=== PATIENT | female | born 1985 | race Caucasian/White ===

== ENCOUNTER → 2020-04-06 14:15 | Outpatient (BNVA) | payer SELFPAY | DX: Z13.89 Encounter for screening for other disorder (principal) | CPT/HCPCS: U0003 ==

== ENCOUNTER 2023-03-10 09:09 | Outpatient (REF) | payer OTHER, SELFPAY ==
--- NOTE | ~2023-03-10 | MM_ITS ---
EXAMINATION: BONE DENSITOMETRY CLINICAL INDICATION: Multiple sclerosis. COMPARISON: This is the patient's baseline examination. TECHNIQUE: Using a VIOSO DXA System (software version: 13.1) manufactured by [employer], dual-energy x-ray absorptiometry was performed of the lumbar spine and left hip. The images are of good technical quality. Based on ISCD (International Society for Clinical Densitometry) standards of reporting, Z-scores instead of T-scores are reported in this premenopausal woman. Summary results are attached. FINDINGS: LEFT FEMUR, NECK: BMD 0.995 g/cm2, T-score -0.3, Z-score -0.5, Z-score within expected range for age. LEFT FEMUR, TOTAL: BMD 1.051 g/cm2, T-score 0.3, Z-score -0.1, Z-score within expected range for age. AP SPINE L1-L3 (excluding L4): The data of L1-L4 has been changed to exclude the L4 vertebral body, because degenerative sclerosis at this level may cause overestimation of lumbar spine density. BMD 1.140 g/cm2, T-score -0.3, Z-score -1.1, Z-score within expected range for age. IDENTIFIED RISK FACTORS: Height loss. HISTORY OF FRACTURE: None listed. MEDICATIONS: Vitamin D. MM/XR DEXA axial skeleton IMPRESSION: 1. DIAGNOSIS: Based on the lowest Z-score value of -1.1 in the lumbar spine, the patient's bone density is within the expected range for age. 2. 10-YEAR FRACTURE RISK PREDICTION, FRAX: Not performed in this patient outside the age range of 40-90 years. 3. Treatment Recommendations: NOF guidelines recommend consideration for treatment in postmenopausal women and men age 50 and older presenting with the following: -A hip or vertebral (clinical or morphometric) fracture. -T-score less than or equal to -2.5 at the femoral neck or spine after appropriate evaluation to exclude secondary causes. -Low bone mass at the hip or spine and a 10-year fracture probability by FRAX of greater than or equal to 3% for hip fracture or greater than or equal to 20% for major osteoporotic fracture based on the [place] adapted WHO algorithm. 4. Other Recommendations: All treatment decisions require clinical judgment and consideration of individual patient factors, including patient preferences, comorbidities, previous drug use, risk factors not captured in the FRAX model (e.g. frailty, falls, vitamin D deficiency, increased bone turnover, interval significant decline in bone density) and possible under or overestimation of fracture risk by FRAX. FUTURE SCAN RECOMMENDATION: People with diagnosed cases of osteoporosis or at high risk for fracture should have regular bone mineral density tests. For patients eligible for Medicare, routine testing is allowed once every 2 years. The testing frequency can be increased to one year for patients who have rapidly progressing disease, those who are receiving or discontinuing medical therapy to restore bone mass, or have additional risk factors.
== END 2023-03-10 09:10 | disposition home or self-care (01) ==
LOC: HO.MAMMO 09:09
PROVIDERS: PCP Internal Medicine; Visit Provider Physician Assistant
DX: Z13.820 Encounter for screening for osteoporosis (principal); G35 Multiple sclerosis; R29.890 Loss of height; Z79.899 Other long term (current) drug therapy; Q85.02 Neurofibromatosis, type 2
CPT/HCPCS: 77080

== ENCOUNTER 2025-03-03 14:15 | Outpatient (REF) | payer MEDICAID, SELFPAY ==
--- OUTSIDE RECORDS SUMMARY | 2008-08-03 | XMS_ITS | Encounter Summary ---
Author Organization [facility] General [facility] Address [address] [place] [address] Phone Care Team Providers Care Road Boss Name Role Phone Unavailable Primary Care Provider Unavailabl e Encounter Details Date Type Department Care Team (Late st Contact Info) Description 08/03/2008 Hospital Encounter [facility] General Imaging [address] [place] [address] Adolph Roth MD, PhD [address] [facility] [id number] [place] [address] [email or web address] Social History Tobacco Use Types Packs/Day Years Used Date Smoking Tobacco: Never Smokeless Tobacco: Never Alcohol Use Standard Drinks/Week Comments Yes 0 (1 standard drink = 0.6 oz pur e alcohol) once every month Home Health Assessment: Transportation Answer Date Recorded Lack of Transportation (Medical) No 12/21/2024 Lack of Transportation (Non-Medical) No 12/21/2024 Patient Unable or Declines to Respond No 12/21/2024 Education Answer Date Recorded Are you interested in more education? Not on clemente e 09/11/2022 Are you concerned about learning? Not on file 09/11/2022 No 09/11/2022 No 09/11/2022 Digital Access Answer Date Recorded No 10/10/2022 No 10/10/2022 Reliable internet access at home? Not on file 10/10/2022 Device with a working camera? Not on file Intimate Partner Violence Answer Date R ecorded Are you denied basic needs s uch as food, clothing, or medical care? No 10/11/2024 In the past 12 months have y ou been in a relationship with a person who hurts, threatens, or tries to control you? No 10/11/2024 Are you denied basic needs s uch as food, clothing, or medical care? No 10/11/2024 In the past 12 months have y ou been in a relationship with a person who hurts, threatens, or tries to control you? No 10/11/2024 Comments No Sex and Gender Information Value Date Recorded Sex Assigned at Female 07/03/2022 1:09 PM EST Legal Sex Female 9:16 PM EDT Gender Identity Female 07/03/2022 1:09 PM EST Sexual Orientation Straight 07/15/2024 10 :33 AM EST documented as of this encounter Functional Status * Calculated C-SSRS Risk Score (Lifetime/Recent) Answer Date of Assessment Author No Risk Indicated 10/11/2024 1:02 PM EDT Matthew Doan RN * [place] Suicide Severity Rating Scale (Screener/Recent Self-Report) Question Answer Date of Assessment Author 1. Wish to be (Past 1 Month) No 025 1:02 PM EDT Matthew Doan RN 2. Non-Specific Active Suici katlyn Thoughts (Past 1 Month) No 10/11/2024 1:02 PM EDT Matthew Doan RN 6. Suicidal Behavior (Lifetime) No 5 1:02 PM EDT Matthew Doan RN documented as of this encounter Plan of Treatment Not on file documented as of this encounter Procedures Procedure Name Priority Date/Time Associated Diagnosis Comments CT SPINE (NEURO) OUTSIDE (NO INTERPRETATION) Routine 08/03/2008 12:00 AM EDT documented in this encounter Results * CT Spine (Neuro) Focus Outside (No Interpretation) (08/03/2008 12:00 AM EDT) Narrative [facility] IMG INTERFACES - 07/15/2022 1:47 PM EST This study is for PACS storage only and not for interpretation. Adolph Roth MD, PhD IMG OUTSIDE IMAGIN G W/OUT INTERPRETATION Final Result [facility] IMG INTERFACES documented in this encounter Visit Diagnoses Not on filedocumented in this encounter Additional Health Concerns Infection Onset Date Last Indicated Resolved Time COVID-19 02/11/2023 02/11/2023 03/04/2023 1:23 AM EDT documented as of this encounter Additional Source Comments The information contained in this document represents components of the legal health record. It is not the complete legal health record.[facility]
--- OUTSIDE RECORDS SUMMARY | 2008-08-03 | XMS_ITS | Encounter Summary ---
Author Organization [facility] Address [address] [place] [address] Phone Care Team Providers Care Plastics Technician Name Role Phone Unavailable Primary Care Provider Unavailabl e Encounter Details Date Type Department Care Team (Late st Contact Info) Description 08/03/2008 Hospital Encounter [facility]Outside Imaging [address] [place] [address] Unknown, Unknown, MD Social History Tobacco Use Types Packs/Day Years [...] 1:02 PM EDT Matthew Doan RN * [place] Suicide Severity Rating Scale (Screener/Recent Self-Report) Question Answer Date of Assessment Author 1. Wish to be (Past 1 Month) No 025 1:02 PM EDT Matthew Doan RN 2. Non-Specific Active Suici katlyn Thoughts (Past 1 Month) No 10/11/2024 1:02 PM EDT Matthew Doan RN 6. Suicidal Behavior (Lifetime) No 1:02 PM EDT Matthew Doan RN documented as of this encounter Plan of Treatment Not on file documented as of this encounter Procedures Procedure Name Priority Date/Time Associated Diagnosis Comments MRI SPINE MUSCULOSKELETAL FOCUS OUTSIDE (NO INTERPRETATION) Routine 08/03/2008 12:00 AM EDT documented in this encounter Results * MRI Spine (Bone) Outside (No Interpretation) (08/03/2008 12:00 AM EDT) Narrative [facility], DOCUMENTATION - 11/18/2023 12:21 PM EDT This study is for PACS storage only and not for interpretation. us Unknown Unknown MD LUZ OUTSIDE IMAGING W/OUT INT ERPRETATION Final Result documented in this encounter Visit Diagnoses Not on filedocumented in this encounter Additional Health Concerns Infection Onset Date Last Indicated Resolved Time COVID-19 02/11/2023 02/11/2023 03/04/2023 1:23 AM EDT documented as of this encounter Additional Source Comments The information contained in this document represents components of the legal health record. It is not the complete legal health record.[facility]
--- OUTSIDE RECORDS SUMMARY | 2009-10-09 | XMS_ITS | Encounter Summary ---
Author Organization [facility] General [facility] Address [address] [place] [address] Phone Care Team Providers Care Soybean Grower Name Role Phone Unavailable Primary Care Provider Unavailabl e Encounter Details Date Type Department Care Team (Late st Contact Info) Description 10/09/2009 Hospital Encounter [facility] General Imaging [address] [place] [address] Adolph Roth MD, PhD 55 [facility] [id number] [place] [address] [email or web address] Social History Tobacco Use Types Packs/Day [...] 1:02 PM EDT Matthew Doan RN * [place] Suicide Severity Rating Scale (Screener/Recent Self-Report) Question [...] Priority Date/Time Associated Diagnosis Comments MRI SPINE NEUROLOGIC FOCUS OUTSIDE (NO INTERPRETATION) Routine 10/09/2009 12:00 AM EDT documented in this encounter Results * MRI Spine (Neuro) Outside (No Interpretation) (10/09/2009 12:00 AM EDT) Narrative [facility] INTERFACES - 07/15/2022 1:46 PM EST This study is for PACS storage only and not for interpretation. Adolph Roth MD, PhD IM OUTSIDE IMAGIN G W/OUT INTERPRETATION Final Result [...] It is not the complete legal health record.[facility]
--- NOTE | ~2025-03-03 | XR_ITS ---
EXAMINATION: XR CHEST 2 VIEWS HISTORY: acute bacterial bronchitis COMPARISON: There are no prior studies available for comparison. FINDINGS: PA and lateral views of the chest are submitted. A rounded soft tissue mass is seen at the left lung apex compatible with the patient's known neurofibromatosis. The lungs are clear. There is no pleural effusion, pneumothorax, or pulmonary vascular congestion. The heart is normal in size. A surgical clip is seen in the mediastinum. The bones are intact. XR/XR chest 2V IMPRESSION: Clear lungs. Rounded mass at the left lung apex consistent with the patient's known neurofibromatosis. Electronically signed by: Lisandro Norman MD 03/03/2025 02:54 PM EDT
--- OUTSIDE RECORDS SUMMARY | 2025-03-03 16:49 | XMS_ITS | Encounter Summary ---
Author Organization [facility] Address [address] [place] [address] Phone Care Team Providers Care Red Mud Thickener Operator Name Role Phone Sergio Vegas MD Unavailable [phone] Tucker Peters DO Primary Care Provider [phone] Zac Armenta MD Unavailable [phone] Tucker Peters DO Unavailable Tucker Peters DO Primary Care Provider [phone] Encounter Details Date Type Department Care Team (Late st Contact Info) Description 02/19/2023 Procedure Pass [facility] IMG 3DCTMR MG [address] [place] [address] Social History Tobacco Use Types Packs/Day Years Used Date Smoking Tobacco: Never Smokeless Tobacco: Never Alcohol Use Standard Drinks/Week Comments Yes 0 (1 standard drink = 0.6 oz pur e alcohol) once every month Education Answer Date Recorded Are you interested in more education? Not on clemente e 09/11/2022 Are you concerned about learning? Not on file 09/11/2022 No 09/11/2022 No 09/11/2022 Digital Access Answer Date Recorded No 10/10/2022 No 10/10/2022 Reliable internet access at home? Not on file 10/10/2022 Device with a working camera? Not on file Comments No Sex and Gender Information Value Date Recorded Sex Assigned at Female 07/03/2022 1:09 PM EST Legal Sex Female 9:16 PM EDT Gender Identity Female 07/03/2022 1:09 PM EST Sexual Orientation Straight 07/15/2024 10 :33 AM EST documented as of this encounter Plan of Treatment Not on file documented as of this encounter Visit Diagnoses Not on filedocumented in this encounter Additional Health Concerns Infection Onset Date Last Indicated Resolved Time COVID-19 02/11/2023 02/11/2023 03/04/2023 1:23 AM EDT documented as of this encounter Care Teams Red Mud Thickener Operator Relationship Specialty Start Date End Date Tucker Peters DO [address] [place] [address] [email or web address] PCP - General Internal Medicine 07/09/21 07/14/24 Tucker Peters DO [address] [place] [address] PCP - General Internal Medicine 07/15/24 Sergio Vegas MD [address] [place] [address] [email or web address] Primary Oncologist Neurology 07/27/18 Zac Armenta MD [address] [place] [address] Neurosurgery 08/19/22 Tucker Peters DO [address] [place] [address] [email or web address] Insurance Assigned Provider 09/20/22 04/25/23 documented as of this encounter Additional Source Comments The information contained in this document represents components of the legal health record. It is not the complete legal health record.[facility]
--- OUTSIDE RECORDS SUMMARY | 2025-03-03 16:49 | XMS_ITS | Encounter Summary ---
Author Organization [facility] Address [address] [place] [address] Phone Care Team Providers Care Fuels Sales Representative Name Role Phone Sergio Vegas MD Unavailable [phone] Tucker Peters DO Primary Care Provider [phone] Zac Armenta MD Unavailable [phone] Tucker Peters DO Primary Care Provider [phone] Encounter Details Date Type Department Care Team (Late st Contact Info) Description 09/10/2023 Procedure Pass Non-Invasive Cardiology [address] [place] [address] Social History Tobacco Use Types Packs/Day Years [...] Diagnoses Not on filedocumented in this encounter Care Teams Fuels Sales Representative Relationship Specialty Start Date End Date Tucker Peters DO [address] [place] [address] [email or web address] PCP - General Internal Medicine 07/09/21 07/14/24 Tucker Peters DO [address] [place] [address] PCP - General Internal Medicine 07/15/24 Sergio Vegas MD [address] [place] [address] [email or web address] Primary Oncologist Neurology 07/27/18 Zac Armenta MD [address] [place] [address] Neurosurgery 08/19/22 documented as of this encounter Additional Source Comments The information contained in this document represents components of the legal health record. It is not the complete legal health record.[facility]
--- OUTSIDE RECORDS SUMMARY | 2025-03-03 16:49 | XMS_ITS | Encounter Summary ---
Author Organization [facility] Address [address] [place] [address] Phone Care Team Providers Care Bindery Leadperson Name Role Phone Sergio Vegas MD Unavailable [phone] Zac Armenta MD Unavailable [phone] Tucker Peters DO Primary Care Provider Encounter Details Date Type Department Care Team (Late st Contact Info) Description 10/11/2024 Procedure Pass [facility], Ct Scan - [address] [address] Social History Tobacco Use Types Packs/Day Years [...] 1:02 PM EDT Matthew Doan RN * [place] Suicide Severity Rating Scale (Screener/Recent Self-Report) Question [...] on filedocumented in this encounter Care Teams Bindery Leadperson Relationship Specialty Start Date End Date Tucker Peters DO [address] [place] [address] PCP - General Internal Medicine 07/15/24 Sergio Vegas MD [address] [place] [address] [email or web address] Primary Oncologist Neurology 07/27/18 Zac Armenta MD [address] [place] [address] Neurosurgery 08/19/22 documented as of this encounter Additional Source Comments The information contained in this document represents components of the legal health record. It is not the complete legal health record.[facility]
--- OUTSIDE RECORDS SUMMARY | 2025-03-03 16:49 | XMS_ITS | Encounter Summary ---
Author Organization [facility] Address [address] [place] [address] Phone Care Team Providers Care Photo Graphics Librarian Name Role Phone Lorraine Tucker Silva DO Unavailable Galina Reyes SLUBBER HAND Unavailable Bernarda Byrne SLUBBER HAND Unavailable [phone] Flor Iqbal SLUBBER HAND Unavailable Madai Fernandez SLUBBER HAND Unavailable Sangeetha Lincoln SLUBBER HAND Unavailable Carina Bronson MD Primary Care Provider Sergio Vegas MD Unavailable [phone] Tucker Petres DO Primary Care Provider [phone] Tucker Peters DO Unavailable Zac Armenta MD Unavailable [phone] Tucker Peters DO Unavailable Tucker Peters DO Primary Care Provider [phone] Encounter Details Date Type Department Care Team (Late st Contact Info) Description 06/16/2018 Procedure Pass [facility] General Imaging [address] [place] [address] Social History Tobacco Use Types Packs/Day Years Used Date Smoking Tobacco: Never Assessed Comments Unknown Sex and Gender Information Value Date Recorded [...] documented as of this encounter Care Teams Photo Graphics Librarian Relationship Specialty Start Date End Date Carina Bronson MD [address] [place] [address] PCP - General Internal Medicine 06/10/18 07/08/21 Tucker Peters DO [address] [place] [address] PCP - General Internal Medicine 07/09/21 07/14/24 Tucker Peters DO [address] [place] [address] PCP - General Internal Medicine 07/15/24 Tucker Peters DO [address] [place] [address] Historical LMR Provider 03/02/17 05/25/21 Galina Reyes NP [address] [address] Historical LMR Provider 03/02/17 2 Bernarda Byrne NP [address] [place] [address] Historical LMR Provider 03/02/17 2 Flor Iqbal NP [address] [place] [address] Historical LMR Provider 03/02/17 2 Madai Fernandez NP [address] [place] [address] [email or web address] Historical LMR Provider 03/02/17 2 Sangeetha Lincoln NP [address] [place] [address] Historical LMR Provider 03/02/17 2 Sergio Vegas MD [address] [place] [address] [email or web address] Primary Oncologist Neurology 07/27/18 Tucker Peters DO [address] [place] [address] [email or web address] Insurance Assigned Provider 10/26/21 01/25/22 Zac Armenta MD [address] [place] [address] Neurosurgery 08/19/22 Tucker Peters DO [address] [place] [address] [email or web address] Insurance Assigned Provider 09/20/22 04/25/23 documented as of this encounter Additional Source Comments The information contained in this document represents components of the legal health record. It is not the complete legal health record.[facility]
--- OUTSIDE RECORDS SUMMARY | 2025-03-03 16:49 | XMS_ITS | Encounter Summary ---
Author Organization [facility] Address [address] [place] [address] Phone Care Team Providers Care Cull Grader Name Role Phone Sergio Vegas MD Unavailable [phone] Tucker Peters DO Primary Care Provider [phone] Zac Armenta MD Unavailable [phone] Tucker Peters DO Unavailable Tucker Peters DO Primary Care Provider [phone] Encounter Details Date Type Department Care Team (Late st Contact Info) Description 02/19/2023 Procedure Pass [address] [address] Social History Tobacco Use Types Packs/Day Years [...] documented as of this encounter Care Teams Cull Grader Relationship Specialty Start Date End Date Tucker Peters DO [address] [place] [address] [email or web address] PCP - General Internal Medicine 07/09/21 07/14/24 Tucker Peters DO [address] [place] [address] PCP - General Internal Medicine 07/15/24 Sergio Vegas MD [address] [place] [address] [email or web address] Primary Oncologist Neurology 07/27/18 Zac Armenta MD [address] [place] [address] Neurosurgery 08/19/22 Tucker Peters DO [address] [place] [address] [email or web address] Insurance Assigned Provider 09/20/22 04/25/23 documented as of this encounter Additional Source Comments The information contained in this document represents components of the legal health record. It is not the complete legal health record.[facility]
--- OUTSIDE RECORDS SUMMARY | 2025-03-03 16:49 | XMS_ITS | Encounter Summary ---
Author Organization [facility] Address [address] [place] [address] Phone Care Team Providers Care Shop Cooper Name Role Phone Lorraine Tucker Silva DO Unavailable Galina Reyes PHARMACIST PER DIEM Unavailable Bernarda Byrne PHARMACIST PER DIEM Unavailable [phone] Flor Iqbal PHARMACIST PER DIEM Unavailable Madai Fernandez PHARMACIST PER DIEM Unavailable Sangeetha Lincoln PHARMACIST PER DIEM Unavailable Carina Bronson MD Primary Care Provider Sergio Vegas MD Unavailable [phone] Tucker Peters DO Primary Care Provider [phone] Tucker Peters DO Unavailable Zac Armenta MD Unavailable [phone] Tucker Peters DO Unavailable Tucker Peters DO Primary Care Provider [phone] Encounter Details Date Type Department Care Team (Late st Contact Info) Description 06/16/2018 Procedure Pass [facility] General Imaging [address] [place] [address] Social History Tobacco Use Types [...] documented as of this encounter Care Teams Shop Cooper Relationship Specialty Start Date End Date Carina Bronson MD [address] [place] [address] PCP - General Internal Medicine 06/10/18 07/08/21 Tucker Peters DO [address] [place] [address] PCP - General Internal Medicine 07/09/21 07/14/24 Tucker Peters DO [address] [place] [address] PCP - General Internal Medicine 07/15/24 Tucker Peters DO [address] [place] [address] Historical LMR Provider 03/02/17 05/25/21 Galina Reyes NP [address] [address] Historical LMR Provider 03/02/17 2 Bernarda Byrne NP [address] [place] [address] Historical LMR Provider 03/02/17 2 Flor Iqbal NP [address] [place] [address] Historical LMR Provider 03/02/17 2 Madai Fernandez NP [address] [place] [address] [email or web address] Historical LMR Provider 03/02/17 2 Sangeetha Lincoln NP [address] [place] [address] Historical LMR Provider 03/02/17 2 Sergio Vegas MD [address] [place] [address] [email or web address] Primary Oncologist Neurology 07/27/18 Tucker Peters DO [address] [place] [address] [email or web address] Insurance Assigned Provider 10/26/21 01/25/22 Zac Armenta MD [address] [place] [address] Neurosurgery 08/19/22 Tucker Peters DO [address] [place] [address] [email or web address] Insurance Assigned Provider 09/20/22 04/25/23 documented as of this encounter Additional Source Comments The information contained in this document represents components of the legal health record. It is not the complete legal health record.[facility]
--- OUTSIDE RECORDS SUMMARY | 2025-03-03 16:49 | XMS_ITS | Clinical Summary ---
Author Organization [facility] Address [address] [place] [address] Phone Care Team Providers Care Agricultural Equipment Sales Manager Name Role Phone Sergio Vegas MD Unavailable [phone] Zac Armenta MD Unavailable [phone] Tucker Peters DO Primary Care Provider [phone] Allergies Active Allergy Reactions Criticality Noted Date Comments Ether For Anesthesia 06/08/2014 Other reaction(s): Unknown Medications VYVANSE 70 mg capsule TAKE 1 CAPSULE BY MOUTH ONCE DAILY NEEDED FOR ADHD 08/10/19 24 Active lisdexamfetamine (VYVANSE) 70 MG capsule Take 70 mg by mouth. 01/06/20 24 Active lisdexamfetamine (VYVANSE) 60 MG capsule 06/13/19 25 Active lisdexamfetamine (VYVANSE) 50 MG capsule 05/02/20 24 Active tirzepatide, weight loss, (ZEPBOUND) 2.5 mg/0.5 mL subcutaneous pen Act shantel potassium chloride SA (KLOR-CON M20) 20 MEQ ER tablet TAKE 1 TABLET BY MOUTH ONCE DAILY. DO NOT CRUSH OR CHEW. MAY BE SPLIT IN HALF OR DISSOLVED IN WATER. 05/12/20 24 Active montelukast (SINGULAIR) 10 mg tablet Take 10 mg by mouth. 10/25/19 24 Active escitalopram oxalate (LEXAPRO) 20 MG tablet escitalopram 20 mg tablet TAKE 1 TABLET EVERY DAY BY ORAL ROUTE FOR 30 DAYS. Active buPROPion (WELLBUTRIN) 100 MG immediate release tablet Take 100 mg by mouth. 01/06/20 Active benzonatate (TESSALON) 200 MG capsule 07/14/19 Active ELIQUIS 5 mg tablet Take 5 mg by mouth 2 (two) times a day. 12/09/19 Active abemaciclib (VERZENIO) 200 mg tablet Take 200 mg by mouth 2 (two) times a day. 01/06/20 Active LORazepam (ATIVAN) 0.5 MG tablet Take 0.5 mg by mouth nightly at bedtime as needed for anxiety. 12/06/19 Active buPROPion (WELLBUTRIN XL) 150 MG ER 24 hr tablet Take 150 mg by mouth every morning. 09/28/19 Active acetaminophen (TYLENOL) 325 mg tablet Take 975 mg by mouth every 6 (six) hours as needed for pain (specific location in comments). 12/06/19 Active oxyCODONE 5 MG immediate release tablet Take 5 mg by mouth every 4 (four) hours as needed for pain (specific location in comments). take 1-2 tabs 12/06/19 Active cyclobenzaprine (FLEXERIL) 5 MG tablet Take 10 mg by mouth every 8 (eight) hours as needed for muscle spasms. 12/06/19 Active senna (SENOKOT) 8.6 mg tablet Take 2 tablets by mouth nightly at bedtime. 12/06/19 Active docusate sodium (COLACE) 100 MG capsule Take 100 mg by mouth 2 (two) times a day as needed for mild constipation. constipation 12/06/19 Active calcium carbonate (OS-EMILY) 1,250 mg (500 mg elemental) tablet Take 1 tablet by mouth 3 (three) times a day as needed for heartburn. 12/06/19 Active loratadine (CLARITIN) 10 mg tablet Take 10 mg by mouth daily. 12/06/19 Active ondansetron (ZOFRAN-ODT) 4 MG disintegrating tablet Take 4 mg by mouth every 8 (eight) hours. 12/06/19 Active polyethylene glycol (MIRALAX) 17 gram packet Take 17 g by mouth as needed for moderate constipation. 12/06/19 Active topiramate (TOPAMAX) 25 MG tablet Take 25 mg by mouth daily. 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 Hormonal IUD can reduce certainly some of the physical aspects of PMDD, but I would not regard it as a treatment for the mood symptoms prior to menses. 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 Also discussed a course hysterectomy, 100% resolution of course of any uterine bleeding or cramping related to that. Cannot be certain it will resolve all pain in the pelvic area given the neurofibromatosis. Discussed the surgery, surgical risks, recovery, and would need to of course coordinate with her primary or operator control room regarding management of the Eliquis prior to and after the surgery. Uncertain if they would want to bridge with heparin or Lovenox, although she recently held it for 3 days for another procedure Assessment & Plan (09/02/2023 10:09 AM EDT): She used nuvaring for 10 years, stopped about 10 years ago. She has heavy painful periods. She just restarted in the last month. We discuss use and how this affects her hormones. We discussed that all hormonal methods for control can be used to try to reduces symptoms from heavy painful periods. We discuss hysterectomy as well. She is mostly sure she will not have any pregnancies. I discuss that IVF with pre-implantation genetic testing could avoid passing down the neurofibromatosis possibly, she could have a consult with a fertility specialist. She is not currently interested in this today. I advise she consult also with her specialists about if they feel that estrogen, progesterone, or would affect her NF or not. She has gotten some mixed info over the years about this. 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 Encounters Date Type Department Care Team Description 12/26/2024 Episode Documentatio n Update [facility] [address] [place] [address] Liz Godfrey 12/21/2024 2:00 PM EDT Home Care Visit [facility] [address] [place] [address] Deanna Grigsby, OT OT OASIS DISCHARGE VISIT 12/21/2024 Episode Documentatio n Update [facility] [address] [place] [address] Lisa Pfeiffer 12/20/2024 11:00 AM EDT Home Care Visit [facility] [address] [place] [address] Deanna Grigsby, OT OT HOME VISIT 12/20/2024 Episode Documentatio n Update [facility] [address] [place], [place] [phone] Amy Mckeon 12/15/2024 2:30 PM EDT Home Care Visit [facility] [address] [place] [address] Luh Bucio, PT PT DISCIPLINE DISCHARGE VISIT 12/15/2024 12:00 PM EDT Home Care Visit [facility] [address] [place], [place] [phone] Deanna Grigsby, OT OT HOME VISIT 12/13/2024 12:00 PM EDT Home Care Visit [facility] [address] [place] [address] Deanna Grigsby, OT OT HOME VISIT 12/08/2024 1:30 PM EDT Home Care Visit [facility] [address] [place] [address] Luh Bucio, PT PT HOME VISIT 12/08/2024 12:00 PM EDT Home Care Visit [facility] [address] [place] [address] Fanta Hernandez, OT OT HOME VISIT 12/06/2024 11:00 AM EDT Home Care Visit [facility] [address] [place] [address] Fanta Hernandez, OT OT EVALUATION 12/05/2024 11:30 AM EDT Home Care Visit [facility] [address] [place] [address] Luh Bucio, PT PT OASIS START OF CARE (SOC) 12/05/2024 Plan of Care Documentation [facility] [address] [place] [address] 12/03/2024 Orders Only [facility] [address] [place] [address] [facility] Higuera MD from Last 3 Months Family History Medical History Relation Comments CV disease Father Cancer Sibling Relation Status Comments Father Mother Alive Sibling Sister Social History Tobacco Use Types Packs/Day Years Used Date Smoking Tobacco: Never Smokeless Tobacco: Never Tobacco Cessation:Counseling Given: Not Answered Alcohol Use Standard Drinks/Week Comments Yes 0 [...] Orientation Straight 07/15/2024 10 :33 AM EST Last Filed Vital Signs Vital Sign Reading Time Taken Comments Blood Pressure 130/70 12/21/2024 2:02 PM EDT Pulse 97 12/21/2024 2:02 PM EDT Temperature 36.9 C (98.4 F) 12/21/2024 2:02 PM EDT Respiratory Rate 18 12/21/2024 2:02 PM EDT Oxygen Saturation 98% 12/21/2024 2:02 PM EDT Inhaled Oxygen Concentration - - Weight 99.8 kg (220 lb) 10/17/2024 3:15 PM EDT Height 157.5 cm (5' 2 ) 10/17/2024 3:15 PM EDT Body Mass Index 40.24 10/17/2024 3:15 PM EDT Plan of Treatment Health Maintenance Due Date Last Done Comments DEPRESSION SCREENING 1996 HEPATITIS C SCREENING 2002 HIV ONE-TIME SCREENING (18-65 YEARS) 2002 PAP SMEAR 09/11/2023 09/10/2020 MAMMOGRAM 2024 INFLUENZA VACCINE (#1) 2024 , 07/06/2020, 2016 COVID-19 VACCINE ( season) 2025 11/10/2022, 05/30/2021, 10/18/2020, Additional history exists CREATININE LEVEL 10/11/2025 10/11/2024 POTASSIUM LEVEL 10/11/2025 10/11/2024 SCREENING FOR DIABETES 10/12/2027 10/11/2024 Adult Td,Tdap Booster 07/06/2030 07/06/2020 SMOKING STATUS SCREENING (Once After 26 Yrs) Completed 07/15/2024 HEPATITIS A VACCINES Aged Out No long er eligible based on patient's age to complete this topic HIB VACCINES Aged Out No longer eligi ble based on patient's age to complete this topic MENINGOCOCCAL VACCINES (ACWY) Aged Out No longer eligible based on patient's age to complete this topic MENINGOCOCCAL VACCINES (B) Aged Out N o longer eligible based on patient's age to complete this topic PNEUMOCOCCAL VACCINES (0-49 years) Aged Out No longer eligible based on patient's age to complete this topic Medical Devices Not on file Procedures Procedure Name Priority Date/Time Associated Diagnosis Comments BASIC METABOLIC PANEL STAT 10/11/2024 3:39 PM EDT PAP TEST Routine 09/10/2020 12:00 AM EDT from Last 3 Months or Most Recently Relevant to Health Maintenance Results * Basic metabolic panel (10/11/2024 3:39 PM EDT) SODIUM 135 133 - 146 mmol/L [facility] CHLORIDE 102 96 - 108 mmol/L [facility] POTASSIUM 3.7 3.3 - 5.1 mmol/L [facility] Comment:Specimen slightly he molyzed, result may be falsely elevated. CO2 24 21 - 35 mmol/L [facility] BUN 14 6 - 19 mg/dL [facility] CREATININE 0.90 0.5 - 1.5 mg/dL [facility] GLUCOSE 87 70 - 99 mg/dL [facility] CALCIUM 8.7 8.4 - 10.3 mg/dL [facility] EGFR 83 >59 mL/min/1.7 3m2 [facility] Comment:Estimated glomerular filtration rate calculated using the CKD-EPI refit equation. ANION GAP 13 10 - 20 mmol/L [facility] Blood 10/11/2024 3:39 PM EDT 10/11/2024 3:43 PM EDT us Sari Concepcion PA-C LAB BLOOD ORDERABLES Final Result Performing Organization Address City/State/[facility] Co de Phone Number [address] [address] * Pap Smear (09/10/2020 12:00 AM EDT) 09/10/2020 09/11/2020 9:2 2 AM EDT Narrative SEE NARRATIVE - 09/17/2020 10:08 AM EDT [address] [address] [employer] Sewer: Neeru Jacinto MD DEV MANAGER Cytology Report FINAL DIAGNOSIS A. PAP SMEAR (SUREPATH) CE: SPECIMEN ADEQUACY: Satisfactory for evaluation; transformation zone present. INTERPRETATION: NEGATIVE FOR INTRAEPITHELIAL LESION OR MALIGNANCY. Electronically Signed Out By: GASPER Thomas(ASCP) The Pap test is a screening test primarily for squamous cancers and precursors and has associated false-negative and false-positive results. New technologies such as liquid-based preparations may decrease but will not eliminate all false-negative results. Regular sampling and follow-up of unexplained clinical signs and symptoms are recommended to minimize false negative results. PROCEDURES/ADDENDA HPV Testing (Requested) Ordered Date: 09/11/2020 A. PAP SMEAR (SUREPATH) CE: Human Papilloma Virus Test Negative for high-risk human papillomavirus types 16, 18, 45 and the Other high risk probe set (Includes 31, 33, 35, 39, 51, 52, 56, 58, 59, 66, 68) by [employer] HR-HPV analysis. Clinical correlation is advised. This HPV test was performed at [facility], [address] [place] [address]. This test has been FDA approved for SurePath cervical cytology specimens. The accuracy and precision of this test for all other specimen sources has been verified in the Cytopathology Laboratory of the [facility] and has not been cleared or approved by the U.S. Food and Drug Administration. Clinical correlation is advised. CLINICAL HISTORY Date of Last Menstrual Period: Not Provided Menstrual History: Unknown Other Clinical Conditions: Screening Pap SPECIMEN SOURCE A: PAP SMEAR (SUREPATH) CE Patient Name: DOMONIQUE ALVAREZ : 1985 (Age: 35) Sex: F Institution: [facility] Location: [facility] Date of Collection: 09/10/2020 Date of Reported: 09/17/2020 10:08 Results to: Sari Casillas CNM Sari Casillas CNM, MPH CYTOLOGY ORDERABLES Fi nal Result SEE NARRATIVE from Last 3 Months or Most Recently Relevant to Health Maintenance Insurance [facility] [employer] [facility] DIRECT [facility] DIRECT Care Teams Agricultural Equipment Sales Manager Relationship Specialty Start Date End Date Tucker Peters DO [address] [place] [address] PCP - General Internal Medicine 07/15/24 Sergio Vegas MD [address] [place] [address] [email or web address] Primary Oncologist Neurology 07/27/18 Zac Armenta MD [address] [place] [address] Neurosurgery 08/19/22 Additional Source Comments The information contained in this document represents components of the legal health record. It is not the complete legal health record.[facility]
--- OUTSIDE RECORDS SUMMARY | 2025-03-03 16:49 | XMS_ITS | Encounter Summary ---
Author Organization [facility] Address [address] [place] [address] Phone Care Team Providers Care Director Health Name Role Phone Sergio Vegas MD Unavailable [phone] Tucker Peters DO Primary Care Provider [phone] Zac Armenta MD Unavailable [phone] Tucker Peters DO Primary Care Provider [phone] Reason for Referral * Hospital - Outpatient - Closed Specialty Diagnoses / Procedures Referred By Contjemma t Referred To Contact Radiology Diagnoses Palpitations Procedures MCT (Mobile Cardiac Telemetry) Daja Tinoco PA [address] [facility] [address] [place] [address] Phone: tel: fax: Referral ID Status Reason Start Date Expiration Date Visits Re quested Visits Authorized [id number] Closed 09/10/2023 09/09/2024 1 1 Encounter Details Date Type Department Care Team (Latest Contact Info) Description 09/10/2023 Transcribe Orders Virtual Department [address] [place] [address] Daja Tinoco PA [address] [facility] [place] [address] Palpitations (Primary Dx) Social History Tobacco Use Types Packs/Day Years [...] on file documented as of this encounter Results * MCT (Mobile Cardiac Telemetry) (10/15/2023 3:25 PM EDT) Anatomical Region Laterality Modality Heart Other Narrative 10/16/2023 8:08 AM EDT Event monitor report Indication palpitations Findings: The underlying rhythm is sinus rhythm average heart rate 82 minimum heart rate 45 maximal heart rate 176. There are some PVCs occurring 0.14% of total beats probably isolated with very rare couplets. There are rare premature atrial contractions. There were just a few runs of SVT the longest being 17 beats at a rate of 147 bpm. Conclusion: There are rare PVCs and very rare ventricular couplets. There were a few short runs of SVT the longest was 17 beats at a rate of 147 bpm. us Daja BRANCH [facility] ORDERAB LES Final Result documented in this encounter Visit Diagnoses Diagnosis Palpitations- Primary Palpitations documented in this encounter Care Teams Director Health Relationship Specialty Start Date End Date Tucker Peters DO [address] [place] [address] PCP - General Internal Medicine 07/09/21 07/14/24 Tucker Peters DO [address] [place] [address] PCP - General Internal Medicine 07/15/24 Sergio Vegas MD [address] [place] [address] [email or web address] Primary Oncologist Neurology 07/27/18 Zac Armenta MD [address] [place] [address] Neurosurgery 08/19/22 documented as of this encounter Additional Source Comments The information contained in this document represents components of the legal health record. It is not the complete legal health record.[facility]
--- OUTSIDE RECORDS SUMMARY | 2025-03-03 16:50 | XMS_ITS | Encounter Summary ---
Author Organization [facility] Address [address] [place] [address] Phone Care Team Providers Care System Administration Advisor Name Role Phone Sergio Vegas MD Unavailable [phone] Tucker Peters DO Primary Care Provider [phone] Zac Armenta MD Unavailable [phone] Tucker Peters DO Unavailable Tucker Peters DO Primary Care Provider [phone] Encounter Details Date Type Department Care Team (Late st Contact Info) Description 02/19/2023 Procedure Pass [address] [address] Social History Tobacco Use Types Packs/Day Years [...] documented as of this encounter Care Teams System Administration Advisor Relationship Specialty Start Date End Date Tucker Peters DO [address] [place] [address] [email or web address] PCP - General Internal Medicine 07/09/21 07/14/24 Tucker Peters DO [address] [place] [address] PCP - General Internal Medicine 07/15/24 Sergio Vegas MD [address] [place] [address] [email or web address] Primary Oncologist Neurology 07/27/18 Zac Armenta MD [address] [place] [address] Neurosurgery 08/19/22 Tucker Peters DO [address] [place] [address] [email or web address] Insurance Assigned Provider 09/20/22 04/25/23 documented as of this encounter Additional Source Comments The information contained in this document represents components of the legal health record. It is not the complete legal health record.[facility]
== END 2025-03-03 14:16 | disposition home or self-care (01) ==
LOC: HO.XRAY 14:15
PROVIDERS: PCP Internal Medicine; Visit Provider Physician Assistant
DX: J20.8 Acute bronchitis due to other specified organisms (principal); B96.89 Other specified bacterial agents as the cause of diseases classified elsewhere
CPT/HCPCS: 71046

== ENCOUNTER → 2025-03-03 14:37 | Outpatient (BNV) | payer MEDICAID, SELFPAY | PROVIDERS: PCP Internal Medicine; Visit Provider Radiology Diagnostic Radiology | DX: R91.8 Other nonspecific abnormal finding of lung field (principal) | CPT/HCPCS: 71046 ==